=== PATIENT | male | born 1960 | race Caucasian/White ===

== ENCOUNTER 2016-08-21 16:40 | Emergency (ER) | payer BC ==
[2016-08-21 16:59] VITALS: BMI 35.6
--- NOTE | 2016-08-21 18:09 | PDOC ---
History of Present Illness - History of Present Illness Initial Comments: 08/21/16 18:28 The patient is a 56 year old male with no past medical hx who presents to the ED complaining of urinary retention for a few days. The patient reports associated dysuria, bladder pressure, and foggy colored urine. The patient reports he has been unable to make a solid straight stream while urinating. The patient reports he saw Dr. Lowe yesterday and was given ciprofloxacin for his symptoms. The patient reports for further work up and evaluation of his symptoms. The patient denies fever, chills, hematuria The patient denies nausea, vomiting, abdominal pain, back pain <Emma Hinojosa - Last Filed: 08/21/16 19:49> <Lynn Parisi - Last Filed: 08/21/16 21:17> - General Chief Complaint: Urinary Problem Stated Complaint: URINARY PROBLEM Time Seen by Provider: 08/21/16 17:39 Past History <Emma Hinojosa - Last Filed: 08/21/16 19:49> - Past Medical History Other medical history: PROSTATE ENLARGEMENT? PT USURE - Psycho/Social/Smoking Cessation Hx Suicidal Ideation: No Smoking History: Current every day smoker Have you smoked in the past 12 months: Yes Cigars Per Day: 1 Information on smoking cessation initiated: No <Lynn Parisi - Last Filed: 08/21/16 21:17> - Past Medical History Allergies/Adverse Reactions: Allergies Allergy/AdvReac Type Severity Reaction Status Date / Time No Known Allergies Allergy Verified 08/21/16 16:55 Home Medications: Ambulatory Orders Ciprofloxacin [Cipro -] 500 mg PO Q12H #20 tablet 04/05/14 Silodosin [Rapaflo] 8 mg PO HS 08/21/16 Review of Systems - Review of Systems Able to Perform ROS?: Yes Comments:: 08/21/16 18:29 CONSTITUTIONAL: Absent: fever, chills, diaphoresis, generalized weakness, malaise, loss of appetite HEENT: Absent: rhinorrhea, nasal congestion, throat pain, throat swelling, difficulty swallowing, mouth swelling, ear pain, eye pain, visual Changes CARDIOVASCULAR: Absent: chest pain, syncope, palpitations, irregular heart rate, lightheadedness , peripheral edema RESPIRATORY: Absent: cough, shortness of breath, dyspnea with exertion, orthopnea, wheezing, stridor, hemoptysis GASTROINTESTINAL: Absent: abdominal pain, abdominal distension, nausea, vomiting, diarrhea, constipation, melena, hematochezia GENITOURINARY: +Retention, dysuria, bladder pressure, foggy urine. Absent: hematuria, flank pain, genital pain MUSCULOSKELETAL: Absent: myalgia, arthralgia, joint swelling SKIN: Absent: rash, itching, pallor HEMATOLOGIC/IMMUNOLOGIC: Absent: easy bleeding, easy bruising, lymphadenopathy, frequent infections ENDOCRINE: Absent: unexplained weight gain, unexplained weight loss, heat intolerance, cold intolerance NEUROLOGIC: Absent: headache, focal weakness or paresthesias, dizziness, unsteady gait, seizure, mental status changes, bladder or bowel incontinence PSYCHIATRIC: Absent: anxiety, depression, suicidal or homicidal ideation, hallucinations. <Emma Hinojosa - Last Filed: 08/21/16 19:49> *Physical Exam - Vital Signs Last Vital Signs Temp Pulse Resp BP Pulse Ox 97.9 F 100 H 19 149/94 97 08/21/16 16:55 08/21/16 16:55 08/21/16 16:55 08/21/16 16:55 08/21/16 16:55 - Physical Exam Comments: 08/21/16 18:30 GENERAL: Well developed, well nourished. Awake and alert. No acute distress. HEENT: Normocephalic, atraumatic. PERRLA, EOMI. No conjunctival pallor. Sclera are non- icteric. Moist mucous membranes. Oropharynx is clear. NECK: Supple. Full ROM. No JVD. Carotid pulses 2+ and symmetric, without bruits. No thyromegaly. No lymphadenopathy. CARDIOVASCULAR: Regular rate and rhythm. No murmurs, rubs, or gallops. Distal pulses are 2+ and symmetric. PULMONARY: No evidence of respiratory distress. Lungs clear to auscultation bilaterally. No wheezing, rales or rhonchi. ABDOMINAL: +Tenderness to palpation to the LLQ. Soft. Non-distended. No rebound or guarding. No organomegaly. Normoactive bowel sounds. MUSCULOSKELETAL Normal range of motion at all joints. No bony deformities or tenderness. No CVA tenderness. EXTREMITIES: No cyanosis. No clubbing. No edema. No calf tenderness. SKIN: Warm and dry. Normal capillary refill. No rashes. No jaundice. NEUROLOGICAL: Alert, awake, appropriate. Cranial nerves 2-12 intact. No deficits to light touch and temperature in face, upper extremities and lower extremities. No motor deficits in the in face, upper extremities and lower extremities. PSYCHIATRIC: Cooperative. Good eye contact. Appropriate mood and affect. <Emma Hinojosa - Last Filed: 08/21/16 19:49> - Vital Signs Last Vital Signs Temp Pulse Resp BP Pulse Ox 97.9 F 100 H 19 149/94 97 08/21/16 16:55 08/21/16 16:55 08/21/16 16:55 08/21/16 16:55 08/21/16 16:55 <Lynn Parisih - Last Filed: 08/21/16 21:17> ED Treatment Course - LABORATORY CBC & Chemistry Diagram: 08/21/16 18:30 08/21/16 18:30 - RADIOLOGY Radiograph Interpretation: 08/21/16 19:[address] without contrast Clinical information: left flank pain, urinary retention In comparison to a previous CT exam of 04/05/2014 note is made of interval development of diffuse urinary bladder wall thickening as well as development of diffuse edema within the surrounding perivesical fat. Development of a small amount of fluid is seen within the extraperitoneal spaces bilaterally adjacent to the urinary bladder. As on the prior study the urinary bladder is overdistended with an approximate volume of 1100 mL. There is increased bilateral hydroureteronephrosis which currently appears marked. The remainder of the study demonstrates no definite interval change. No CT evidence of urolithiasis. There is probable mild to moderate prostate enlargement. The liver, spleen, pelvis, gallbladder, and adrenal glands demonstrate no discrete noncontrast abnormality. There is no aortic aneurysm. No evidence of pneumoperitoneum or bowel obstruction. There is no definite lymphadenopathy. Impression: In comparison to a previous CT exam of 04/05/2014 interval development of diffuse urinary bladder wall thickening is noted as well as development of perivesical edema. There has been development of a small amount of fluid within the extraperitoneal spaces adjacent to the urinary bladder bilaterally. Note is again made of urinary retention with a current volume of approximately 1100 mL. There is increased bilateral hydroureteronephrosis which currently appears marked presumably secondary to urinary retention. Small bilateral inguinal hernias containing fat only. Reported By: Angel Hull MD 08/21/16 1907 <Emma Hinojosa - Last Filed: 08/21/16 19:49> - LABORATORY CBC & Chemistry Diagram: 08/21/16 18:30 08/21/16 18:30 <Lynn Parisi - Last Filed: 08/21/16 21:17> *DC/Admit/Observation/Transfer - Attestations Scribe Attestion: 08/21/16 18:28 Documentation prepared by Emma Hinojosa, acting as medical oncology physician for Lynn Parisi MD/DO. <Emma Hinojosa - Last Filed: 08/21/16 19:49> <Lynn Parisi - Last Filed: 08/21/16 21:17> Diagnosis at time of Disposition: Urinary retention with incomplete bladder emptying, Hematuria, Hydroureter BPH (benign prostatic hyperplasia) Qualifiers: Prostatic enlargement morphology: unspecified morphology Lower urinary tract symptom presence: symptoms present Qualified Code(s): N40.1 - Benign prostatic hyperplasia with lower urinary tract symptoms Hydronephrosis Qualifiers: Hydronephrosis type: other Qualified Code(s): N13.39 - Other hydronephrosis - Discharge Dispostion Disposition: HOME Condition at time of disposition: Stable - Referrals Referrals: David Lowe MD [Primary Care Provider] - - Patient Instructions Printed Discharge Instructions: DI for Urinary Retention in Men, Hydronephrosis -- Adult, Benign Prostatic Hyperplasia Additional Instructions: please continue taking your antibiotics and see your urologist this week
[2016-08-21] MEDS ORDERED: KETOROLAC TROMETHAMINE 60 MG/2 ML VIAL IM ONE (18:13)
[2016-08-21 19:10] LABS: BASOPHIL 1.3 % (0-2.0); EOSINOPHIL 0.7 % (0-4.5); MCH 31.8 pg (25.7-33.7); MCHC 34.5 g/dl (32.0-35.9); MEAN CELL VOLUME 92.3 fl (80-96); MEAN PLT VOLUME 9.1 fl (7.5-11.1); NEUTROPHILS 65.6 % (42.8-82.8); PLATELET COUNT 224 K/MM3 (134-434); RDW 13.5 % (11.9-15.9); WHITE BLOOD COUNT 13.9 K/mm3 (4.0-10.0)
[2016-08-21 19:12] LABS: URINE APPEARANCE CLEAR; URINE BILIRUBIN NEGATIVE (NEGATIVE); URINE BLOOD NEGATIVE (NEGATIVE); URINE COLOR LTYELLOW; URINE GLUCOSE (UA) NEGATIVE (NEGATIVE); URINE KETONE NEGATIVE (NEGATIVE); URINE LEUK ESTERASE NEGATIVE (NEGATIVE); URINE NITRITE NEGATIVE (NEGATIVE); URINE UROBILINOGEN NEGATIVE E.U./dl (0.2-1.0)
[2016-08-21 19:31] LABS: URINE PROTEIN 2+ (NEGATIVE)
[2016-08-21 19:32] LABS: URINE MUCUS RARE; URINE RBC 4 /hpf (0-3); URINE WBC 14 /hpf (3-5)
[2016-08-21] MEDS ORDERED: KETOROLAC TROMETHAMINE 60 MG/2 ML VIAL ONE (19:48)
[2016-08-21 20:03] LABS: ALK PHOS 76 U/L (45-117); ANION GAP 11 (8-16); BILIRUBIN,TOTAL 0.4 mg/dL (0.2-1.0); CALCIUM 9.2 mg/dL (8.5-10.1); CO2 24 mmol/L (21-32); CREATININE 1.1 mg/dL (0.7-1.3); GLUCOSE,RANDOM 86 mg/dL (74-106); SGOT/AST 14 U/L (15-37); SGPT/ALT 21 U/L (12-78); TOT PROT 7.4 g/dl (6.4-8.2)
[2016-08-21 22:08] VITALS: BP 139/87; PULSE 89; TEMP 98.2
== END 2016-08-21 21:35 | disposition home or self-care (01) ==
LOC: JER 16:40
PROC: 3E0233Z Introduction of Anti-inflammatory into Muscle, Percutaneous Approach (ICD-10-PCS; principal; 2016-08-21)
DX: N40.1 Benign prostatic hyperplasia with lower urinary tract symptoms (principal); R33.8 Other retention of urine; N13.39 Other hydronephrosis
CPT/HCPCS: 36415; 74176; 80053; 81003; 81015; 85025; 87086; 99284-25